=== PATIENT | female | born 1985 | race Caucasian/White ===

== ENCOUNTER → 2016-09-03 | Outpatient (CLI) | payer OTHER ==
[~2016-09-03] MED LIST: ATIVAN; ATIVAN 1MG T1 MG/TAB PO; BCP TD; BENADRYL 50MG C50 MG PO; BIRTH CONTROL; CELEXA40 MG PO; CIPRO 500MG TA500 MG PO; CYMBALTA 30MG30 MG PO; DOXYCYCLINE 10100 MG PO; FLAGYL500 MG PO; IBU800 M1 PO; MVI; NORCO 325 MG-51 TAB PO; PHENERGAN W/CO120 ML PO; PREDNISONE10 MG PO; TUSS PO; VENTOLIN0.09 MG IH; VICODIN 5/5001 UDTAB PO; VITAMIN C500 MG PO; ZITHROMAX Z PA250 MG PO
== END ==
LOC: BHSO 14:47
DX: F33.42 Major depressive disorder, recurrent, in full remission (principal)

== ENCOUNTER 2018-07-18 12:32 | Emergency (ER) | payer OTHER ==
[~2018-07-18] VITALS: Ht 165.1 cm; Wt 104.5 kg
[2018-07-18 12:39] VITALS: BP 129/60; TEMP 97.5
[2018-07-18] MEDS ORDERED: ATIVAN 0.50.5 MG/TAB PO (13:02)
[2018-07-18] MEDS ORDERED: ZITHROMAX Z PA250 MG PO (13:15)
[2018-07-18 14:00] VITALS: PULSE 90
== END 2018-07-18 14:00 | disposition home or self-care (01) ==
LOC: COL.ER 12:32
DX: J18.1 Lobar pneumonia, unspecified organism (principal); F17.210 Nicotine dependence, cigarettes, uncomplicated; Z88.0 Allergy status to penicillin; Z88.1 Allergy status to other antibiotic agents; Z88.5 Allergy status to narcotic agent

== ENCOUNTER → 2021-01-17 | Outpatient (CLI) | payer MEDICAID ==
[~2021-01-17] MED LIST changes: +ABILIFY5 MG PO; +ATIVAN 0.50.5 MG/TAB PO; +GLUCOPHAGE500 MG/TAB PO; +HUMALOG100 U/ML; +IBU600 MG PO; +LANTUS100 U/ML; +LIDO2%JEL30 TP; +MASON NATURAL2000 IU PO; +MULTIPLE VITAMI1 TA5 PO; +PHENERGAN W/CO120 M1 PO; +PRENATAL TABLET PO; +PRISTIQ 50 MG T50 MG PO; +PROAIR DIGIHAL90 MCG IH; +ROXICODONE 55 MG/TAB PO
== END ==
LOC: DIA.ED 07:33
DX: O24.419 Gestational diabetes mellitus in pregnancy, unspecified control (principal); Z79.84 Long term (current) use of oral hypoglycemic drugs
CPT/HCPCS: G0108

== ENCOUNTER 2021-01-28 07:08 | Emergency (ER) | payer MEDICAID ==
[~2021-01-28] VITALS: Ht 165.1 cm; Wt 114.0 kg
[~2021-01-28 07:08] MED LIST changes: -ABILIFY5 MG PO; -GLUCOPHAGE500 MG/TAB PO; -HUMALOG100 U/ML; -IBU600 MG PO; -LANTUS100 U/ML; -LIDO2%JEL30 TP; -MASON NATURAL2000 IU PO; -MULTIPLE VITAMI1 TA5 PO; -PHENERGAN W/CO120 M1 PO; -PRENATAL TABLET PO; -PRISTIQ 50 MG T50 MG PO; -PROAIR DIGIHAL90 MCG IH; -ROXICODONE 55 MG/TAB PO
[2021-01-28 07:22] VITALS: TEMP 98
[2021-01-28] MEDS ORDERED: ZITHROMAX Z PA250 MG PO (10:35)
[2021-01-28] MEDS ORDERED: PROAIR DIGIHAL90 MCG IH (10:35)
[2021-01-28] MEDS ORDERED: PHENERGAN W/CO120 M1 PO (10:35)
[2021-01-28 10:43] VITALS: BP 111/65; PULSE 92
== END 2021-01-28 10:43 | disposition home or self-care (01) ==
LOC: COL.ER 07:08
DX: O99.513 Diseases of the respiratory system complicating pregnancy, third trimester (principal); J18.9 Pneumonia, unspecified organism; Z3A.30 30 weeks gestation of pregnancy; Z20.822 Contact with and (suspected) exposure to COVID-19; Z87.891 Personal history of nicotine dependence; Z88.1 Allergy status to other antibiotic agents; Z88.0 Allergy status to penicillin
CPT/HCPCS: J0696

== ENCOUNTER → 2021-02-16 | Outpatient (CLI) | payer MEDICAID ==
[~2021-02-16] MED LIST changes: +ABILIFY5 MG PO; +GLUCOPHAGE500 MG/TAB PO; +HUMALOG100 U/ML; +IBU600 MG PO; +LANTUS100 U/ML; +LIDO2%JEL30 TP; +MASON NATURAL2000 IU PO; +MULTIPLE VITAMI1 TA5 PO; +PHENERGAN W/CO120 M1 PO; +PRENATAL TABLET PO; +PRISTIQ 50 MG T50 MG PO; +PROAIR DIGIHAL90 MCG IH; +ROXICODONE 55 MG/TAB PO
== END ==
LOC: DIA.ED 09:03
DX: O24.419 Gestational diabetes mellitus in pregnancy, unspecified control (principal); Z79.4 Long term (current) use of insulin
CPT/HCPCS: G0108

== ENCOUNTER → 2021-03-05 | Outpatient (CLI) | payer MEDICAID | LOC: DIA.ED | DX: O24.419 Gestational diabetes mellitus in pregnancy, unspecified control (principal); Z79.4 Long term (current) use of insulin | CPT/HCPCS: G0108 ==

== ENCOUNTER 2021-04-02 09:05 | Inpatient (IN) | payer MEDICAID ==
[~2021-04-02] VITALS: Ht 165.1 cm; Wt 119.5 kg
[2021-04-02] VITALS (17 sets, daily range): BP systolic 95–134; BP diastolic 45–84; PULSE 60–97; TEMP 97.7–98.3
[~2021-04-02 09:05] MED LIST changes: -ABILIFY5 MG PO; -GLUCOPHAGE500 MG/TAB PO; -HUMALOG100 U/ML; -IBU600 MG PO; -LANTUS100 U/ML; -LIDO2%JEL30 TP; -MASON NATURAL2000 IU PO; -MULTIPLE VITAMI1 TA5 PO; -PRENATAL TABLET PO; -PRISTIQ 50 MG T50 MG PO; -ROXICODONE 55 MG/TAB PO
[2021-04-02 11:18] LABS: BASO # 0.1 (0.0-0.2); BASO % 0.4 % (0.0-2.0); EOS # 0.1 (0.0-0.7); EOS % 0.9 % (0-4.0); GRAN # 10.4 (1.4-6.5); GRAN % 73.6 % (42.2-75.2); HEMATOCRIT 38.2 % (37.0-47.0); HEMOGLOBIN 12.5 g/dl (12.5-16.0); LYMPH # 2.6 (1.2-3.4); LYMPH % 18.1 % (20.0-51.0); MEAN CELL VOLUME 93 fl (80.0-100.0); MEAN CORPUSCULAR HEMOGLOBIN 30 pg (27.0-31.0); MEAN CORPUSCULAR HGB CONC 33 g/dl (33.0-37.0); MEAN PLATELET VOLUME 11.3 fl (7.4-10.4); MONO # 0.9 (0.1-0.6); PLATELET COUNT 300 K/mm3 (130-400); RED BLOOD COUNT 4.11 M/mm3 (4.10-5.30); REDCELL DISTRIBUTION WIDTH-CV 13.9 % (11.5-14.5)
[2021-04-02] MEDS ORDERED: PRENATAL TABLET PO (11:47)
[2021-04-02] MEDS ORDERED: MASON NATURAL2000 IU PO (11:48)
[2021-04-02] MEDS ORDERED: HUMALOG100 U/ML (11:51)
[2021-04-02] MEDS ORDERED: LANTUS100 U/ML (11:52)
[2021-04-02 12:14] LABS: TRICYCLIC ANTIDEPRESS URINE NEGATIVE
[2021-04-03 01:00] VITALS: BP 126/44; PULSE 61; TEMP 98.2
[2021-04-03 07:28] VITALS: BP 133/72; PULSE 83; TEMP 97.9
[2021-04-03 07:34] LABS: HEMATOCRIT 33.7 % (37.0-47.0)
[2021-04-03 16:00] VITALS: BP 144/59; PULSE 79; TEMP 98.3
[2021-04-03 19:00] VITALS: BP 136/68; PULSE 83; TEMP 98.4
[2021-04-04 07:45] VITALS: BP 131/61; PULSE 68
[2021-04-04] MEDS ORDERED: IBU600 MG PO (13:03)
[2021-04-04] MEDS ORDERED: ROXICODONE 55 MG/TAB PO (13:04)
[2021-04-04] MEDS ORDERED: GLUCOPHAGE500 MG/TAB PO (13:05)
== END 2021-04-04 15:20 | disposition home or self-care (01) | DRG 788 ==
LOC: OB 10:01
PROVIDERS: ADMIT Obstetrics & Gynecology
PROC: 10D00Z1 Extraction of Products of Conception, Low, Open Approach (ICD-10-PCS; principal; 2021-04-02)
DX: O34.211 Maternal care for low transverse scar from previous cesarean delivery (principal); O99.344 Other mental disorders complicating childbirth; F41.9 Anxiety disorder, unspecified; O99.214 Obesity complicating childbirth; E66.9 Obesity, unspecified; O24.420 Gestational diabetes mellitus in childbirth, diet controlled; F31.9 Bipolar disorder, unspecified; Z3A.39 39 weeks gestation of pregnancy; Z37.0 Single live birth
CPT/HCPCS: J0171; J0690; J1100; J1885; J2370; J2405; J2590; J2791; J7120

== ENCOUNTER 2021-05-23 11:54 | Day surgery (SDC) | payer MEDICAID ==
[~2021-05-23] VITALS: Ht 165.1 cm; Wt 107.9 kg
[~2021-05-23 11:54] MED LIST changes: +GLUCOPHAGE500 MG/TAB PO; +HUMALOG100 U/ML; +IBU600 MG PO; +LANTUS100 U/ML; +MASON NATURAL2000 IU PO; +PRENATAL TABLET PO; +ROXICODONE 55 MG/TAB PO
--- NOTE | 2021-05-23 12:30 | NUR ---
Patient ambulated independently to [facility] with steady gait. Alert and oriented. Confirmed procedure and consent signed. Vitals obtained. 18G IV started in right wrist, infusing without complication. Blood gluc: 99. Heart tones regular. Lungs: ULL inspiratory wheeze. Bowel sounds +X4 quad. Ok to use saline/nsaid enema with paitents home med nsaids per pharmacy staff. Non slip socks on, bed rails up x2, call light in reach. Instructed to call before getting out of bed. Warm blankets provided to position patient comfortably.
[2021-05-23] MEDS ORDERED: PRISTIQ 50 MG T50 MG PO (13:08)
[2021-05-23] MEDS ORDERED: ABILIFY5 MG PO (13:09)
[2021-05-23] MEDS ORDERED: ATIVAN 1MG T1 MG/TAB PO (13:09)
[2021-05-23] MEDS ORDERED: MULTIPLE VITAMI1 TA5 PO (13:10)
[2021-05-23 13:30] VITALS: BP 132/77; PULSE 72; TEMP 98.1
[2021-05-23] MEDS ORDERED: LIDO2%JEL30 TP (16:41)
[2021-05-23] MEDS ORDERED: ROXICODONE 55 MG/TAB PO (16:41)
[2021-05-23 17:08] VITALS: BP 124/76; PULSE 70; TEMP 97.8
--- NOTE | 2021-05-23 17:08 | NUR ---
Patient returned to [facility] via cart, alert and oriented. Postop vitals started. Coffee and muffin provided.
[2021-05-23 17:23] VITALS: BP 134/84; PULSE 78
--- NOTE | 2021-05-23 17:23 | NUR ---
Patient alert and oriented, tolerating food and drink well. Vitals stable. Patinetn up to bathroom able to void. Operative site dress clean and dry. Instructed patient to dress and open door when ready for discharge.
[2021-05-23 17:24] VITALS: BP 136/73; PULSE 73
--- NOTE | 2021-05-23 17:50 | NUR ---
1739 - discontinue IV with no complications. 1750 - transfered patient via wheelchair to personal vehicle to be driven home by friend.
== END 2021-05-23 17:50 | disposition home or self-care (01) ==
LOC: SDCO 11:54
DX: A63.0 Anogenital (venereal) warts (principal); E11.9 Type 2 diabetes mellitus without complications; J45.20 Mild intermittent asthma, uncomplicated; K21.9 Gastro-esophageal reflux disease without esophagitis; F41.9 Anxiety disorder, unspecified; F17.210 Nicotine dependence, cigarettes, uncomplicated; Z79.84 Long term (current) use of oral hypoglycemic drugs; Z79.899 Other long term (current) drug therapy; Z86.718 Personal history of other venous thrombosis and embolism; F31.9 Bipolar disorder, unspecified; Z90.89 Acquired absence of other organs; Z90.49 Acquired absence of other specified parts of digestive tract; Z20.822 Contact with and (suspected) exposure to COVID-19; Z83.3 Family history of diabetes mellitus; Z80.0 Family history of malignant neoplasm of digestive organs
CPT/HCPCS: J0690; J1100; J1885; J2405; J2704; J3010; J7120